=== PATIENT | female | born 1945 | race Two or more races ===

== ENCOUNTER 2019-10-11 10:30 | Inpatient (IN) | payer OTHER ==
[~2019-10-11] VITALS: Ht 160 cm; Wt 64.4 kg
[2019-10-11] MEDS ORDERED: SYNTHROID100 MCG PO (11:15)
[2019-10-11] MEDS ORDERED: DIOVAN160 M1 PO (11:15)
[2019-10-11] MEDS ORDERED: ZANTAC300 MG PO (11:16)
[2019-10-11] MEDS ORDERED: ZEGERID 40 MG1 EACH PO (11:16)
[2019-10-14] MEDS ORDERED: SIMVASTATIN20 MG PO (08:03)
[2019-10-14] MEDS ORDERED: VALSARTAN-HCTZ1 EAC1 PO (08:04)
[2019-10-18] MEDS ORDERED: OXYC1TAB9 PO (17:25)
[2019-10-18] MEDS ORDERED: INTESTINEX680 M1 PO (17:26)
== END 2019-10-18 17:39 | disposition home or self-care (01) | DRG 330 ==
LOC: O/R 10-14 06:27 → SURH 10-14 06:27 → SURG-SUITE 10-14 07:00 → EDSEX 10-14 10:30 → SURG-SUITE 10-14 10:30 → O/R 10-14 10:30 → SURG 10-14 15:27 → SURH 10-14 15:30
PROVIDERS: Student in an Organized Health Care Education/Training Program; ADMIT Surgery
PROC: 0UT54ZZ Resection of Right Fallopian Tube, Percutaneous Endoscopic Approach (ICD-10-PCS; 2019-10-14)
PROC: 0UT04ZZ Resection of Right Ovary, Percutaneous Endoscopic Approach (ICD-10-PCS; 2019-10-14)
PROC: 0DQP4ZZ Repair Rectum, Percutaneous Endoscopic Approach (ICD-10-PCS; principal; 2019-10-14 07:00)
PROC: 0UT9FZZ Resection of Uterus, Via Natural or Artificial Opening With Percutaneous Endoscopic Assistance (ICD-10-PCS; 2019-10-14 07:00)
DX: K62.3 Rectal prolapse (principal); Q43.8 Other specified congenital malformations of intestine; N81.2 Incomplete uterovaginal prolapse; N88.8 Other specified noninflammatory disorders of cervix uteri; R15.9 Full incontinence of feces; I10 Essential (primary) hypertension; E03.8 Other specified hypothyroidism; N73.6 Female pelvic peritoneal adhesions (postinfective); N39.46 Mixed incontinence; N83.311 Acquired atrophy of right ovary

== ENCOUNTER 2022-10-10 05:30 | Day surgery (SDC) | payer OTHER ==
[~2022-10-10] VITALS: Ht 160 cm; Wt 59.0 kg
[~2022-10-10 05:30] MED LIST: DIOVAN160 M1 PO; INTESTINEX680 M1 PO; OXYC1TAB9 PO; SIMVASTATIN20 MG PO; SYNTHROID100 MCG PO; VALSARTAN-HCTZ1 EAC1 PO; ZANTAC300 MG PO; ZEGERID 40 MG1 EACH PO
[2022-10-10] MEDS ORDERED: ULTRACET PO (10:28)
== END 2022-10-10 12:15 | disposition home or self-care (01) ==
LOC: CIR.AMB 05:30
PROVIDERS: ATTEND Surgery
DX: R15.9 Full incontinence of feces (principal); R19.5 Other fecal abnormalities; K62.3 Rectal prolapse; I10 Essential (primary) hypertension; E03.9 Hypothyroidism, unspecified; Z91.041 Radiographic dye allergy status
CPT/HCPCS: 64581; 95972; C1778

== ENCOUNTER 2022-10-24 06:00 | Day surgery (SDC) | payer OTHER ==
[~2022-10-24 06:00] MED LIST changes: +ULTRACET PO
[2022-10-24] MEDS ORDERED: ULTRACET PO (09:31)
== END 2022-10-24 11:15 | disposition home or self-care (01) ==
LOC: CIR.AMB 06:00 → EDSEX 09:15 → CIR.AMB 11:15
PROVIDERS: ATTEND Surgery
DX: R15.9 Full incontinence of feces (principal); R19.5 Other fecal abnormalities; I10 Essential (primary) hypertension; E78.5 Hyperlipidemia, unspecified; E03.9 Hypothyroidism, unspecified; R73.03 Prediabetes; D69.6 Thrombocytopenia, unspecified; Z91.041 Radiographic dye allergy status; Z86.16 Personal history of COVID-19
CPT/HCPCS: 64590; 95972; L8679